=== PATIENT | male | born 1955 | race Caucasian/White ===

== ENCOUNTER → 2024-02-25 09:33 | Outpatient (REF) | payer MEDICARE, SELFPAY ==
[2024-02-25 10:22] LABS: % Basophils 0.5 % (0-2); % Immature Granulocytes 0.3 % (0-0.5); % Lymphocytes 23.5 % (20.5-51.1); % Monocytes 5.7 % (1.7-9.3); Absolute Eosinophils 0.2 10^3/uL (0-0.7); Absolute Lymphocytes 1.7 10^3/uL (1.2-3.4); Absolute Monocytes 0.4 10^3/uL (0.1-0.6); Absolute Neutrophils 4.9 10^3/uL (1.4-6.5); Hematocrit 41.8 % (39.0-52.0); Hemoglobin 14.5 g/dL (13.0-18.0); Mean Corp Hgb Conc. 34.7 g/dL (33.0-37.0); Mean Corpuscular Volume 86.4 fL (80.0-94.0); Mean Platelet Volume 9.7 fL (7.4-10.4); Nucleated Red Blood Cells % 0 % (-); Platelet Count 214 10^3/uL (130-400); Red Blood Cell Count 4.84 10^6/uL (4.70-6.10); Red Cell Dist. Width 12.6 % (11.5-14.5); White Blood Cell Count 7.4 10^3/uL (4.8-10.8)
[2024-02-25 12:12] LABS: TSH Reflex To Free T4 2.98 uIU/ml (0.47-4.68)
[2024-02-25 12:25] LABS: ALT (SGPT) 32 U/L (0-50); AST (SGOT) 29 U/L (17-59); Albumin 4.7 g/dl (3.5-5.0); Alkaline Phosphatase 58 U/L (38-126); Blood Urea Nitrogen 16 mg/dl (9-20); Calcium 9.8 mg/dl (8.4-10.2); Carbon Dioxide 31 mmol/L (22-30); Chloride 99 mmol/L (98-107); Glucose 113 mg/dl (70-99); HDL Cholesterol 52 mg/dl; LDL Cholesterol, Calculated 133 mg/dl; Potassium 4.4 mmol/L (3.5-5.1); Sodium 139 mmol/L (135-145); Total Bilirubin 1.9 mg/dl (0.2-1.3); Total Cholesterol 237 mg/dl (50-199); Total Protein 7.8 g/dl (6.3-8.2); Triglyceride 264 mg/dl (10-149); Very Low Density Lipoprotein 52 mg/dl (0-30); eGFR > 60.00
[2024-02-26 11:32] LABS: Glycohemoglobin (HgbA1c) 5.7 % (4.0-5.6)
== END ==
LOC: REG 09:33
PROVIDERS: ATTENDING PHYSICIAN Nurse Practitioner Family
DX: E05.90 Thyrotoxicosis, unspecified without thyrotoxic crisis or storm (principal); I10 Essential (primary) hypertension; E78.2 Mixed hyperlipidemia; R73.9 Hyperglycemia, unspecified
CPT/HCPCS: 36415; 80053; 80061; 83036; 84443; 85025

== ENCOUNTER 2024-02-25 17:46 | Emergency (ER) | payer MEDICARE, SELFPAY ==
[2024-02-25 17:54] VITALS: BP 121/79
[2024-02-25 18:33] LABS: Troponin I < 0.012 ng/ml
[2024-02-25 19:58] VITALS: BP 103/55
[2024-02-25 20:00] VITALS: BP 90/59
--- NOTE | 2024-02-25 20:43 | ED.GENMED ---
History of Present Illness
General
Chief Complaint: Chest Pain
Source: patient
Exam Limitations: none
Time Seen by Provider: 02/25/24 20:15
Nursing documentation reviewed up to this point in time: agreed with
History of Present Illness
History of Present Illness:
Patient is a 68-year-old male with history atrial fibrillation on Xarelto, CAD status post cardiac bypass, stents, HTN, HLD presenting to the emergency department for evaluation of chest pain. Patient reports intermittent chest pain over the past
few months. Patient reports essentially no exertional component. No pleuritic component. Yesterday�patient states his blood pressure was elevated. Today, patient reports ongoing chest pain in his mid chest without any radiation to his jaw, back,
shoulder. Pain is still intermittent in nature. Patient denies any associated shortness of breath, lightheadedness/dizziness, diaphoresis. No positional nature to pain.
Patient was seen by his underwriting support manager, Dr. Saldana who states that this pain is 'not his heart '. He was then referred to GI who did not find any source of pain.
Patient states that this pain does not feel similar to prior MIs.
Past History
Past History
ED Past Medical History: Arrthythmia (afib on Eliquis, Toprol, Sotolol), CAD, HTN and Hypercholesterolemia
ED Past Surgical History: Cardiac (cabgx2 2004, ablation, cardioversions)
Social History
Tobacco: Non-smoker
Alcohol: None
Drug: None
Personal:
Living: with family
Family History
Family History: Other
Review of Systems
Review of Systems
Allergies reviewed?: Yes
All Other Systems: ROS reviewed and negative except as documented in HPI and ROS
Phy Exam
Physical Exam
Physical Exam:
Vitals: Patient's vital signs are stable. Afebrile
General: Patient is well appearing, no acute distress. Nontoxic appearing
Skin: Warm and dry, no rashes or lesions
Head: Normocephalic, atraumatic
Eyes: Sclera nonicteric. EOMs intact. No nystagmus.
Throat: Protecting airway
Neck: Normal ROM, no cervical spine tenderness, no meningismus
Cardiac: Regular rate and rhythm, no murmurs. No reproducible chest wall tenderness
Pulm: Normal respiratory effort, no wheezes, rales, rhonchi heard on exam.
Abdomen: No abdominal tenderness.
Extremities: No evidence of cyanosis or edema. Negative Homans' sign.
Neuro: AAOx3. Grossly intact.
Psychiatric: Normal affect.
Scores
Heart Score for Chest Pain Patients
STEMI patient?: No
History: Slightly or Non-Suspicious
ECG: Nonspecific Repolarization
Age: >/= 65 years
Risk Factors: >/= 3 Risk Factors or History of CAD
Troponin: </= Normal Limit
Heart Score for Chest Pain Patients: 5
Heart Score Risk: 20.3% MACE over next 6 weeks
Course
Orders/Labs/Results
Orders:
Orders
02/25/24 17:49
EKG [Electrocardiogram (*1)] Urgent
Reason for Study: Chest Pain
EKG- Treatment ONCE
02/25/24 18:02
Troponin I Urgent
02/25/24 20:27
CR Chest - 2 Views Urgent
Comment:
Reason For Exam: chest pain
02/25/24 20:57
Electrocardiogram (*1) Urgent
Reason for Study: Chest Pain
02/25/24 20:58
EKG- Treatment ONCE
02/25/24 21:10
Troponin I Urgent
02/25/24 17:49
02/25/24 17:49
Vital Signs
Initial and Last Documented VS:
Initial Vital Signs
Temp Pulse Resp BP Pulse Ox
97.4 F 62 19 121/79 100
02/25/24 17:54 02/25/24 17:54 02/25/24 17:54 02/25/24 17:54 02/25/24 17:54
Last Documented Vital Signs
Temp Pulse Resp BP Pulse Ox
97.4 F 60 20 105/66 97
02/25/24 17:54 02/25/24 21:47 02/25/24 21:47 02/25/24 21:47 02/25/24 21:47
MDM/Problems Addressed
Differential Diagnosis Includes:
Not limited to: Muscle strain, pleurisy, costochondritis, pericarditis, myocarditis, PE, pneumothorax, acute coronary syndrome etc.
MDM/Problems Addressed:
68-year-old male presenting with intermittent chest discomfort and palpitations. No exertional or pleuritic component. No associated shortness of breath, lightheadedness, diaphoresis, nausea, back pain. No lower extremity edema or pain. Patient
is stable vital signs on arrival. He is afebrile. On exam�patient is well-appearing, no apparent distress. Heart regular rate and rhythm. Lungs laterally. No reproducible chest wall tenderness. Patient is palpable and equal peripheral pulses.
Lower extremities without any evidence of edema or erythema. Patient had outpatient lab work obtained by PCP today which was reviewed by me. CBC and chemistry without any clinically significant abnormalities. EKG was obtained in triage which does
show some T wave inversions in anterior lateral leads which remain essentially unchanged from prior. This was reviewed with attending physician. initial troponin undetectable. Will trend troponin and check chest x-ray. Low suspicion for ACS given
symptoms been ongoing for the past many weeks intermittently. do not suspect PE. Anticipate discharge.
Update: Repeat troponin remains undetectable. Chest x-ray reviewed by me myself and attending show no acute abnormalities including no pneumonia or pleural effusion. Cardiac silhouette appears normal. Repeat EKG remains unchanged from prior.
Workup in emergency department unremarkable. Patient has had 2 negative troponins and unchanged EKGs. Very low suspicion for acute emergent cardiac process. No indication for admission at this time. Patient will be discharged with close
outpatient cardiology follow-up. He will likely benefit from Holter monitor and possible stress test/echo outpatient. Patient stable for discharge. All questions answered. Case discussed with attending physician.
Chronic conditions affecting care:
Atrial fibrillation on Xarelto
Acute Exacerbation and/or Progression of Chronic Illness:
n/a
*Radiology
Radiology exam reviewed: preliminary read by ED provider (Reviewed by me and attending-no acute abnormalities, no pneumonia or pleural effusion)
*Pulse Oximetry
Patient hypoxic: no
*EKG
Interpreted by ED Provider?: Yes
EKG Intrepretation Date: 02/25/24
Interpretation: abnormal
Comparison EKG: changes noted
Heart Rate: 61
Rate: normal
Rhythm: sinus
Lolo: normal axis
Interval: first degree heart block
QRS Pattern: normal QRS
Ischemia: T-wave inversion (T wave inversions in anterior leads)
*Manager Proposal Interpretation
Rate: normal
Interpretation: normal
Heart Rate: 60
Rhythm: sinus
*Critical Care Note
Total Time (30-74mins, 75-104mins- exclusive of procedures): Not Applicable
ED Attending Note
-
Portions of this chart may have been created with voice recognition software.� Occasional wrong word or��sound alike� substitutions may have occurred due to the inherent limitations of voice recognition software.
Discharge Plan
Departure
Patient Disposition: Home (Routine Discharge)
Date of Disposition: 02/25/24
Time of Disposition: 21:57
Patient with high blood pressure during this ER visit?: No
Condition: Good
Covid-19: Not Applicable
Discharge Problem:
Chest pain
Instructions: Chest Pain CBC Follow Up, Chest Pain
Prescriptions:
No Action
pantoprazole 40 MG tablet,delayed release (DR/EC)
40 mg PO BID
atorvastatin 20 MG tablet
20 mg PO QPM
lisinopril 20 mg Tablet
20 mg PO DAILY
methimazole 5 MG tablet
5 mg PO QPM
methimazole 10 mg Tablet
10 mg PO Q48H
Rx Instructions:
pt alternates 5 or 10mg daily in the morning
sotalol 80 mg Tablet
80 mg PO BID
acetaminophen 500 mg Tablet
1,000 mg PO Q6H PRN (Reason: pain)
ferrous sulfate [iron] 325 mg (65 mg iron) Tablet
325 mg PO DAILY
cholecalciferol (vitamin D3) [Vitamin D3] 50 mcg (2,000 unit) Tablet
50 mcg PO DAILY
Eliquis 5 MG tablet
5 mg PO BID Qty: 0 0RF
ondansetron HCl 4 mg tablet
4 mg PO Q8HPRN PRN (Reason: nausea)
methimazole 5 mg tablet
5 mg PO Q48H
Rx Instructions:
pt alternates 5 or 10mg daily in the morning
furosemide [Lasix] 40 mg tablet
40 mg PO DAILY
Rx Instructions:
You will take 40mg twice daily for 1 week then drop to daily
aspirin 81 MG tablet,delayed release (DR/EC)
81 mg PO DAILY
pantoprazole 40 mg tablet,delayed release (DR/EC)
40 mg PO BID 7 Days Qty: 14 0RF
Referrals:
Coco Saldana MD [Active] - Next open appointment
Belen Calderon MD [Family Provider] -
Activity Restrictions/Additional Instructions:
-RETURN TO THE EMERGENCY DEPARTMENT WITH ANY PERSISTENT CHEST PAIN, CHEST PAIN ASSOCIATED WITH SHORTNESS OF BREATH, DIZZINESS, DIAPHORESIS, NAUSEA, SEVERE BACK PAIN, FEVER WORSENING IN CURRENT SYMPTOMS, OR ANY OTHER CONCERNS
-As discussed/it is important you follow closely with your underwriting support manager for further evaluation/management of your symptoms. You may benefit from a Holter monitor to further monitor your heart rhythm
-Your A1c level has not resulted yet. Please follow closely with your primary care regarding this result
-Please take it easy and do avoid any high exertional activities until you are cleared by cardiology
Monitor your symptoms closely return to the emergency department any acute worsening/new symptoms or any other concerns
Interventions
Interventions:
*Risk Screen - Suicide Last Done: 02/25/24 17:54
*General Assessment Last Done: 02/25/24 17:54
*Neglect/Abuse Screening Last Done: 02/25/24 17:54
ED- Fall Risk Assessment Last Done: 02/25/24 20:24
*ED COVID-19 Vaccine History Last Done: 02/25/24 20:22
*Nursing Disposition Last Done: 02/25/24 22:08
ED- Cardiac Assessment Last Done: 02/25/24 20:21
Discharge Date and Time
Discharge Date/Time: 02/25/24 22:10
Print Language: AZERI
[2024-02-25 21:00] VITALS: BP 97/60
[2024-02-25 21:42] LABS: Troponin I < 0.012 ng/ml
[2024-02-25 21:47] VITALS: BP 105/66
== END 2024-02-25 22:10 | disposition home or self-care (01) ==
LOC: EMR 17:46
PROVIDERS: Emergency Medicine; Physician Assistant; EMERGENCY PHYSICIAN Student in an Organized Health Care Education/Training Program; FAMILY PHYSICIAN Family Medicine
DX: R07.89 Other chest pain (principal); I48.91 Unspecified atrial fibrillation; I25.10 Atherosclerotic heart disease of native coronary artery without angina pectoris; I10 Essential (primary) hypertension; E78.00 Pure hypercholesterolemia, unspecified; Z79.01 Long term (current) use of anticoagulants; Z95.5 Presence of coronary angioplasty implant and graft
CPT/HCPCS: 99283; 71046; 84484; 93005

== ENCOUNTER → 2024-03-23 08:27 | Outpatient (REF) | payer MEDICARE, SELFPAY | LOC: RCS 08:27 | PROVIDERS: ATTENDING PHYSICIAN Internal Medicine Cardiovascular Disease; FAMILY PHYSICIAN Family Medicine | DX: R00.2 Palpitations (principal) | CPT/HCPCS: 93225; 93226 ==

== ENCOUNTER → 2024-06-17 09:45 | Outpatient (REF) | payer MEDICARE, SELFPAY | LOC: RCS 09:45 | PROVIDERS: ATTENDING PHYSICIAN Internal Medicine Cardiovascular Disease; FAMILY PHYSICIAN Internal Medicine | DX: R07.9 Chest pain, unspecified (principal) | CPT/HCPCS: 93017 ==

== ENCOUNTER → 2024-07-05 07:03 | Outpatient (REF) | payer MEDICARE, SELFPAY | LOC: RCS 07:03 | PROVIDERS: ATTENDING PHYSICIAN Internal Medicine Cardiovascular Disease; FAMILY PHYSICIAN Internal Medicine | DX: I48.19 Other persistent atrial fibrillation (principal) | CPT/HCPCS: 93306 ==

== ENCOUNTER 2024-12-23 09:49 | Emergency (ER) | payer MEDICARE, SELFPAY ==
[2024-12-23] VITALS (8 sets, daily range): BP systolic 100–159; BP diastolic 58–79; BMI 30.8
[2024-12-23 11:29] LABS: Hematocrit 41.1 % (39.0-52.0); Hemoglobin 14.4 g/dL (13.0-18.0); Mean Corp Hgb Conc. 35.0 g/dL (33.0-37.0); Mean Corpuscular Volume 85.6 fL (80.0-94.0); Nucleated Red Blood Cells % 0 % (-); Platelet Count 198 10^3/uL (130-400); Red Cell Dist. Width 12.4 % (11.5-14.5)
[2024-12-23 11:41] LABS: INR 1.93; PT 22.2 Sec (11.4-14.6)
[2024-12-23 11:54] LABS: Troponin I < 0.012 ng/ml
[2024-12-23 12:01] LABS: ALT (SGPT) 33 U/L (0-50); AST (SGOT) 29 U/L (17-59); Albumin 4.7 g/dl (3.5-5.0); Alkaline Phosphatase 57 U/L (38-126); Blood Urea Nitrogen 14 mg/dl (9-20); Calcium 9.3 mg/dl (8.4-10.2); Carbon Dioxide 27 mmol/L (22-30); Chloride 104 mmol/L (98-107); Estimated Creatinine Clearance 97 ml/min; Glucose 112 mg/dl (70-99); Potassium 3.9 mmol/L (3.5-5.1); Sodium 140 mmol/L (135-145); Total Protein 7.8 g/dl (6.3-8.2); eGFR > 60.00
--- NOTE | 2024-12-23 12:46 | ED.GENMED ---
History of Present Illness
General
Chief Complaint: Chest Pain
Source: patient
Exam Limitations: none
Time Seen by Provider: 12/23/24 12:30
Nursing documentation reviewed up to this point in time: agreed with
History of Present Illness
History of Present Illness:
69-year-old male with past medical history of A-fib/flutter ablation (2021 ) /CABG, stents presents to the ER for evaluation. This morning around 9 AM he felt sudden palpitation and chest pain. Nurse informed me that when patient presented he was
in a flutter however he converted to normal sinus rhythm. Patient reports he does feel better since he converted. He denies any associated shortness of breath with the symptoms. In addition he is complaining of a sensation of difficulty getting
his urine out. He feels like he' has to push to get the urine out.' Bladder scan was done prior to my arrival and patient does not retaining. Patient is on Eliquis however has not missed a dose.
He has no symptoms of chest pain shortness of breath presently.
Past History
Past History
ED Past Medical History: Arrthythmia (afib on Eliquis, Toprol, Sotolol), CAD, HTN and Hypercholesterolemia
ED Past Surgical History: Cardiac (cabgx2 2003, ablation, cardioversions)
Social History
Tobacco: Non-smoker
Alcohol: None
Drug: None
Personal:
Living: with family
Family History
Family History: Other
Phy Exam
General Physical Exam
General Presentation: no apparent distress
General age: appears stated age
General Skin: warm and dry
General Habitus: normal
General Mental: alert
General Hydration: appears well hydrated
Cardiovascular Exam
Cardiovascular Exam: regular rate/rhythm, no murmur and normal peripheral pulses
Pulmonary Exam
Pulmonary Exam: lungs clear and no respiratory distress
Scores
Heart Score for Chest Pain Patients
STEMI patient?: Not applicable
Course
Orders/Labs/Results
Orders:
Orders
12/23/24 09:50
Electrocardiogram (*1) Urgent
Reason for Study: Chest Pain
EKG- Treatment ONCE
12/23/24 11:17
Complete Blood Count/With Diff Urgent
Comprehensive Metabolic Panel Urgent
Prothrombin Time Urgent
TSH Reflex To Free T4 Urgent
Comment: ADD ON
Troponin I Urgent
12/23/24 12:12
Add On- LAB Urgent
Tests Added?: TSH, reflex T4
12/23/24 12:14
EKG- Treatment ONCE
12/23/24 12:24
Electrocardiogram (*1) Urgent
Reason for Study: Chest Pain
EKG- Treatment ONCE
12/23/24 12:47
Chest [CR Chest - 2 Views ] Urgent
Comment:
Reason For Exam: cp
12/23/24 13:17
UA Reflex to Culture [Urinalysis Reflex To Culture] Urgent
Date Specimen was Collected: 12/23/24
Time Specimen was Collected: 13:15
12/23/24 14:00
Electrocardiogram (*1) Urgent
Reason for Study: Chest Pain
12/23/24 16:26
Troponin I Urgent
Abnormal Lab Results
12/23/24
11:17
PT 22.2 H Sec
(11.4-14.6)
Glucose 112 H mg/dl
(70-99)
Total Bilirubin 2.0 H mg/dl
(0.2-1.3)
12/23/24 11:17
12/23/24 11:17
Vital Signs
Initial and Last Documented VS:
Initial Vital Signs
Temp Pulse Resp BP Pulse Ox
97.7 F 84 16 159/79 99
12/23/24 09:54 12/23/24 09:54 12/23/24 09:54 12/23/24 09:54 12/23/24 09:54
Last Documented Vital Signs
Temp Pulse Resp BP Pulse Ox
97.7 F 68 16 113/68 96
12/23/24 09:54 12/23/24 17:15 12/23/24 17:15 12/23/24 17:00 12/23/24 17:15
MDM/Problems Addressed
Differential Diagnosis Includes:
Not limited to A-fib a flutter, ACS
MDM/Problems Addressed:
As documented patient is a 61-year-old male with history of A-fib a flutter on Eliquis CABG presents to the ER for evaluation. Patient had chest pain and palpitations this morning for an hour presented and controlled a flutter however spontaneously
converted and symptoms resolved. He presented awake alert no acute distress lungs are clear he has been normal sinus rhythm since the ER since converting on his own. He has not skipped a dose of anticoagulation. His cardiac enzymes are negative x
2 his labs are unremarkable. Patient's lungs are clear he has not not hypoxic chest x-ray negative. Discussed case with cardiology on-call Dr. Sim will DC home with outpatient follow-up.
*Radiology
Radiology exam reviewed: radiology read reviewed
*Pulse Oximetry
SaO2: 99
Oxygen Mode of Delivery: Room air
Patient hypoxic: no
*EKG
Interpreted by ED Provider?: Yes
Interpretation: abnormal
Heart Rate: 75
Rate: normal
Rhythm: atrial flutter
Ischemia: other (repeat ekg SR )
*Critical Care Note
Total Time (30-74mins, 75-104mins- exclusive of procedures): Not Applicable
ED Attending Note
-
Portions of this chart may have been created with voice recognition software.� Occasional wrong word or��sound alike� substitutions may have occurred due to the inherent limitations of voice recognition software.
Discharge Plan
Departure
Patient Disposition: Home (Routine Discharge)
Date of Disposition: 12/23/24
Time of Disposition: 17:21
Patient with high blood pressure during this ER visit?: Yes
Condition: Fair
Covid-19: Not Applicable
Discharge Problem:
Chest pain, Atrial flutter
Instructions: Atrial flutter (DC), Chest Pain CBC Follow Up
Prescriptions:
No Action
pantoprazole 40 MG tablet,delayed release (DR/EC)
40 mg PO BID
atorvastatin 20 MG tablet
20 mg PO QPM
lisinopril 20 mg Tablet
20 mg PO DAILY
methimazole 5 MG tablet
5 mg PO QPM
methimazole 10 mg Tablet
10 mg PO Q48H
Rx Instructions:
pt alternates 5 or 10mg daily in the morning
sotalol 80 mg Tablet
80 mg PO BID
acetaminophen 500 mg Tablet
1,000 mg PO Q6H PRN (Reason: pain)
ferrous sulfate [iron] 325 mg (65 mg iron) Tablet
325 mg PO DAILY
cholecalciferol (vitamin D3) [Vitamin D3] 50 mcg (2,000 unit) Tablet
50 mcg PO DAILY
Eliquis 5 MG tablet
5 mg PO BID Qty: 0 0RF
ondansetron HCl 4 mg tablet
4 mg PO Q8HPRN PRN (Reason: nausea)
methimazole 5 mg tablet
5 mg PO Q48H
Rx Instructions:
pt alternates 5 or 10mg daily in the morning
furosemide [Lasix] 40 mg tablet
40 mg PO DAILY
Rx Instructions:
You will take 40mg twice daily for 1 week then drop to daily
aspirin 81 MG tablet,delayed release (DR/EC)
81 mg PO DAILY
pantoprazole 40 mg tablet,delayed release (DR/EC)
40 mg PO BID 7 Days Qty: 14 0RF
Referrals:
Ramone Griffiths DO [Family Provider, Internal Medicine]
Destin Melendez MD [Active, Cardiology]
Activity Restrictions/Additional Instructions:
Follow-up with cardiology in the next several days. You were placed on the chest pain hotline which means you should receive a phone call in the next day or 2 from the office. If you do not please call the office to schedule an appointment soon as
possible. Stay well-hydrated avoid caffeine alcohol chocolate etc. return if any worsening of symptoms.
Also as discussed please have your bilirubin level rechecked by your family doctor as it was mildly elevated here.
Interventions
Interventions:
*Risk Screen - Suicide Last Done: 12/23/24 09:55
*General Assessment Last Done: 12/23/24 11:04
*Neglect/Abuse Screening Last Done: 12/23/24 09:55
*ED- Fall Risk Assessment Last Done: 12/23/24 13:19
*ED COVID-19 Vaccine History Last Done: 12/23/24 13:19
*ED Influenza Vaccine History Last Done: 12/23/24 13:19
ED- Cardiac Assessment Last Done: 12/23/24 11:04
Discharge Date and Time
Print Language: CYPRIOT
[2024-12-23 14:09] LABS: Urine Character Clear (Clear)
[2024-12-23 16:57] LABS: Troponin I < 0.012 ng/ml
== END 2024-12-23 17:36 | disposition home or self-care (01) ==
LOC: EMR 09:49
PROVIDERS: Nurse Practitioner; EMERGENCY PHYSICIAN Emergency Medicine; FAMILY PHYSICIAN Internal Medicine
DX: R07.89 Other chest pain (principal); I48.92 Unspecified atrial flutter; I48.91 Unspecified atrial fibrillation; I25.10 Atherosclerotic heart disease of native coronary artery without angina pectoris; I10 Essential (primary) hypertension; E78.00 Pure hypercholesterolemia, unspecified; Z79.01 Long term (current) use of anticoagulants; Z82.49 Family history of ischemic heart disease and other diseases of the circulatory system; Z95.1 Presence of aortocoronary bypass graft
CPT/HCPCS: 99283; 71046; 80053; 81003; 84443; 84484; 85025; 85610; 93005